=== PATIENT | male | born 1965 | race American Indian/Alaskan Native ===

== ENCOUNTER 2022-01-29 18:05 | Emergency (ER) | payer MEDICAID ==
[2022-01-29] MEDS ORDERED: Sodium Chloride 0.9% 10 ML Syringe FLUSH PRN (18:18)
[2022-01-29 18:19] VITALS: BP 154/88; PULSE 89
[2022-01-29] MEDS ORDERED: Potassium Chloride 20 MEQ Tab.ER PO ONE (19:22)
== END 2022-01-29 19:45 | disposition home or self-care (01) ==
LOC: JP.ED 18:05
DX: E16.2 Hypoglycemia, unspecified (principal); F32.1 Major depressive disorder, single episode, moderate; E05.80 Other thyrotoxicosis without thyrotoxic crisis or storm; E87.6 Hypokalemia; I10 Essential (primary) hypertension; K21.9 Gastro-esophageal reflux disease without esophagitis; Z79.899 Other long term (current) drug therapy; Z88.8 Allergy status to other drugs, medicaments and biological substances
CPT/HCPCS: 36415; 80048; 80076; 81001; 82947; 84443; 85025; 86140; 93005; 99283; 99285-25; A9270-GY